=== PATIENT | male | born 1990 | race Caucasian/White ===

== ENCOUNTER 2017-09-04 00:13 | Emergency (ER) | payer BC, OTHER ==
[2017-09-04 00:17] VITALS: BP 189/89
[2017-09-04] MEDS ORDERED: ZOLPIDEM TARTRATE 5 MG TAB ONE (00:31)
[2017-09-04] MEDS ORDERED: ZOLPIDEM TARTRATE 5 MG TAB PO ONE (00:31)
--- NOTE | 2017-09-04 00:35 | EDPHY ---
H & P Time Seen by Provider: 09/04/17 00:24 HPI/ROS: CHIEF COMPLAINT: Insomnia HISTORY OF PRESENT ILLNESS: 27-year-old male with a known history of bipolar presents emergency department complaining of insomnia. The patient states that he has not slept well for several days. He feels "hypomanic". He denies homicidal or suicidal ideation. He admits to smoking marijuana. Denies any other substance abuse. He denies alcohol. He is requesting prescription for Ambien. He has taken this in the past but not for several years. He denies any physical complaints at this time. REVIEW OF SYSTEMS: Constitutional: No fever, no chills. Eyes: No double or blurry vision. ENT: No sore throat. Respiratory: No cough, no shortness of breath. Cardiac: No chest pain. Gastrointestinal: No abdominal pain, vomiting or diarrhea. Genitourinary: No dysuria. Musculoskeletal: No neck or back pain. Skin: No rashes. Neurological: No headache. Past Medical/Surgical History: Bipolar, marijuana Social History: Single Smoking Status: Current some day smoker Physical Exam: General Appearance: Alert, no distress. Eyes: Pupils equal and round. Extraocular motions are all intact. ENT: Mouth: Mucous membranes moist. Respiratory: No wheezing, rhonchi, or rales, lungs are clear to auscultation. Cardiovascular: Regular rate and rhythm. Gastrointestinal: Abdomen is soft and nontender, no masses, no rebound or guarding, bowel sounds normal. Neurological: Alert and oriented x 3, cranial nerves II through XII grossly intact Skin: Warm and dry, no rashes. Musculoskeletal: Nontender to palpate along the cervical, thoracic or lumbar spine. Neck is supple. Extremities: Full range of motion and no peripheral edema. Psychiatric: Patient is oriented X 3, there is no agitation. Constitutional: Initial Vital Signs Temperature (C) 36.7 C 09/04/17 00:15 Heart Rate 101 H 09/04/17 00:15 Respiratory Rate 20 09/04/17 00:15 Blood Pressure 189/89 H 09/04/17 00:15 O2 Sat (%) 98 09/04/17 00:15 Allergies/Adverse Reactions: No Known Allergies Allergy (Verified 09/04/17 00:15) Home Medications: Medication Instructions Recorded Hydrocodone/APAP 5/325 [[place] 1 - 2 tab PO Q4-6PRN PRN #13 tab 11/10/14 5/325] Zolpidem Tartrate [Ambien 5MG (*)] 5 mg PO HS PRN #7 tab 09/04/17 Medical Decision Making ED Course/Re-evaluation: 27-year-old male presents to the emergency department with a known history of insomnia. The patient is requesting prescription for Ambien which she has taken in the past for short-term relief of insomnia. He has a scheduled appointment with his psychiatrist on Tuesday. His girlfriend is coming to pick him up. He was given 5 mg Ambien and a prescription for 1 weeks worth of this medication. I did offer mental health evaluation, however the patient declined. He did not want to speak with mental health haircutter. Differential Diagnosis: Including but not limited to depression, electrolyte abnormality, substance abuse, stress, anxiety, bipolar Departure - Departure Disposition: Home, Routine, Self-Care Clinical Impression: History of bipolar disorder Insomnia Qualifiers: Insomnia type: unspecified Qualified Code(s): G47.00 - Insomnia, unspecified Condition: Good Instructions: Insomnia (ED), Bipolar Disorder (ED) Additional Instructions: Keep your scheduled appointment with your psychiatrist. Ambien as needed for short-term relief of insomnia. Do not mix alcohol or other drugs with this medication. Return to the emergency department if you have any other change in symptoms or feel worse. Referrals: Saqib Zurita MD [Primary Care Provider] - As per Instructions [facility] [Clinic] - As per Instructions Prescriptions: Zolpidem Tartrate [Ambien 5MG (*)] 5 mg PO HS PRN #7 tab PRN Reason: P.r.n. Insomnia
== END 2017-09-04 00:50 | disposition home or self-care (01) ==
LOC: EEVIPCON 00:13
DX: G47.00 Insomnia, unspecified (principal); F17.200 Nicotine dependence, unspecified, uncomplicated; Z86.59 Personal history of other mental and behavioral disorders

== ENCOUNTER 2017-09-05 01:54 | Inpatient (IN) | payer BC, OTHER ==
--- NOTE | 2017-09-05 02:18 | EDPHY ---
H & P - Medical/Surgical History Hx Asthma: No Hx Chronic Respiratory Disease: No Hx Diabetes: No Hx Cardiac Disease: No Hx Renal Disease: No Hx Cirrhosis: No Hx Alcoholism: No Hx HIV/AIDS: No Hx Splenectomy or Spleen Trauma: No Other PMH: bipolar - Social History Smoking Status: Current some day smoker Time Seen by Provider: 09/05/17 02:09 HPI/ROS: Chief Complaint: Can't sleep, history of bipolar HPI: 27-year-old male with a history of bipolar disorder, not currently under treatment or taking any medications. He has been unable to sleep for the last 3 days. He has had pressured speech and bizarre statements per his girlfriend her brought in for evaluation. He was seen here last night for complaints of difficulty sleeping and prescribed Ambien. He states he has been taking this without any effect. Here he has highly pressured speech and is tangential. He appears paranoid. He is not fully answering all my questions. Denies any other substance use. Does take omeprazole for reflux disease. No recent fevers or chills. No injuries. ROS: 10 point Review of Systems is negative except as noted in the HPI. PMH: Bipolar disorder Social History: Denies smoking, denies alcohol Family History: non-contributory Physical Exam: Gen: Awake, Alert, pressured speech HEENT: Nose: no rhinorrhea Eyes: PERRLA, EOMI Mouth: Moist mucosa Neck: Supple, no JVD Chest: nontender, lungs clear to auscultation Heart: S1, S2 normal, no murmur Abd: Soft, non-tender, no guarding Back: no CVA tenderness, no midline tenderness Ext: no edema, non-tender Skin: no rash Neuro: CN II-XII intact, Sensation grossly intact, Strength 5/5 in bilateral upper and lower extremities (Bran Vazquez) Constitutional: Initial Vital Signs Temperature (C) 36.8 C 09/05/17 02:15 Heart Rate 80 09/05/17 02:15 Respiratory Rate 16 09/05/17 02:15 Blood Pressure 177/102 H 09/05/17 02:15 O2 Sat (%) 96 09/05/17 02:15 O2 Delivery Mode Room Air Allergies/Adverse Reactions: No Known Allergies Allergy (Verified 09/05/17 02:14) Home Medications: Medication Instructions Recorded Hydrocodone/APAP 5/325 [[place] 1 - 2 tab PO Q4-6PRN PRN #13 tab 11/10/14 5/325] Zolpidem Tartrate [Ambien 5MG (*)] 5 mg PO HS PRN #7 tab 09/04/17 Medical Decision Making ED Course/Re-evaluation: 27-year-old with a history of bipolar disorder who is in a manic phase. He has pressured speech. He is not sleeping. He is tangential and he is suspicious and paranoid. I placed him on a mental health hold. Medical screening labs have been sent. He will require mental health evaluation. 0700 patient has required multiple doses of sedation and still not sleeping. In total he has received 20 mg of Zyprexa, 5 mg of Ativan and 50 mg of Benadryl. His stool awake and alert. He is awaiting mental health evaluation. Patient is signed out to Dr. Buck pending evaluation (Bran Vazquez) I took over care of this patient at 7:00 a.m.. This patient is here for bipolar disorder and manic state. He has been given 20 mg of Zyprexa and 5 mg of Ativan during his emergency department course. He is on an M1 hold. He is awaiting behavioral health evaluation. 8:55 a.m., the patient has been accepted for transfer to [address] [place] [address] Gonzalez. His remaining emergency department course under my care has been uneventful. The patient was transferred in good condition. I filled out the appropriate transfer paperwork. (Reg Buck) - Data Points Laboratory Results: Laboratory Results 09/05/17 02:10 09/05/17 02:10 09/05/17 09/05/17 09/05/17 02:10 02:10 02:10 WBC 7.60 10^3/uL 10^3/uL (3.80-9.50) RBC 4.76 10^6/uL 10^6/uL (4.40-6.38) Hgb 15.1 g/dL g/dL (13.7-17.5) Hct 43.6 % % (40.0-51.0) MCV 91.6 fL fL (81.5-99.8) MCH 31.7 pg pg (27.9-34.1) MCHC 34.6 g/dL g/dL (32.4-36.7) RDW 12.8 % % (11.5-15.2) Plt Count 252 10^3/uL 10^3/uL (150-400) MPV 8.9 fL fL (8.7-11.7) Neut % (Auto) 32.3 % L % (39.3-74.2) Lymph % (Auto) 57.9 % H % (15.0-45.0) [place] % (Auto) 8.0 % % (4.5-13.0) Eos % (Auto) 1.2 % % (0.6-7.6) Baso % (Auto) 0.5 % % (0.3-1.7) Nucleat RBC Rel Count 0.0 % % (0.0-0.2) Absolute Neuts (auto) 2.45 10^3/uL 10^3/uL (1.70-6.50) Absolute Lymphs (auto) 4.40 10^3/uL H 10^3/uL (1.00-3.00) Absolute Monos (auto) 0.61 10^3/uL 10^3/uL (0.30-0.80) Absolute Eos (auto) 0.09 10^3/uL 10^3/uL (0.03-0.40) Absolute Basos (auto) 0.04 10^3/uL 10^3/uL (0.02-0.10) Absolute Nucleated RBC 0.00 10^3/uL 10^3/uL (0-0.01) Immature Gran % 0.1 % % (0.0-1.1) Immature Gran # 0.01 10^3/uL 10^3/uL (0.00-0.10) Sodium 144 mEq/L mEq/L (135-145) Potassium 3.6 mEq/L mEq/L (3.3-5.0) Chloride 107 mEq/L mEq/L (97-110) Carbon Dioxide 21 mEq/l L mEq/l (22-31) Anion Gap 16 mEq/L mEq/L (8-16) BUN 16 mg/dL mg/dL (7-23) Creatinine 1.0 mg/dL mg/dL (0.7-1.3) Estimated GFR > 60 Glucose 103 mg/dL H mg/dL (70-100) Calcium 9.2 mg/dL mg/dL (8.5-10.4) Urine Opiates Screen NEGATIVE (NEGATIVE) Urine Barbiturates NEGATIVE (NEGATIVE) Ur Phencyclidine Scrn NEGATIVE (NEGATIVE) Ur Amphetamine Screen NEGATIVE (NEGATIVE) U Benzodiazepines Scrn NEGATIVE (NEGATIVE) Urine Cocaine Screen NEGATIVE (NEGATIVE) U Marijuana (THC) Screen NEGATIVE (NEGATIVE) Ethyl Alcohol < 10 mg/dL mg/dL (0-10) Medications Given: Discontinued Medications Diphenhydramine HCl (Benadryl Injection) 50 mg IVP EDNOW ONE Stop: 09/05/17 04:48 Last Admin: 09/05/17 04:50 Dose: 50 mg Sodium Chloride (Ns) 1,000 mls @ 0 mls/hr IV ONCE ONE; Wide Open PRN Reason: Protocol Stop: 09/05/17 02:33 Last Admin: 09/05/17 02:39 Dose: 1,000 mls Lorazepam (Ativan Injection) 1 mg IVP EDNOW ONE Stop: 09/05/17 02:33 Last Admin: 09/05/17 02:40 Dose: 1 mg Lorazepam (Ativan) 1 mg PO EDNOW ONE Stop: 09/05/17 03:47 Last Admin: 09/05/17 03:49 Dose: 1 mg Lorazepam (Ativan Injection) 2 mg IVP EDNOW ONE Stop: 09/05/17 04:03 Last Admin: 09/05/17 04:17 Dose: 2 mg Lorazepam (Ativan Injection) 1 mg IVP EDNOW ONE Stop: 09/05/17 04:22 Last Admin: 09/05/17 04:23 Dose: 1 mg Olanzapine (Zyprexa Zydis) 10 mg PO EDNOW ONE Stop: 09/05/17 02:33 Last Admin: 09/05/17 02:40 Dose: 10 mg Olanzapine (Zyprexa Zydis) 10 mg PO EDNOW ONE Stop: 09/05/17 06:17 Last Admin: 09/05/17 06:16 Dose: 10 mg Departure - Departure Disposition: [facility] IP Clinical Impression: Bipolar 1 disorder, Manic behavior Referrals: NONE *PRIMARY CARE P,. [Primary Care Provider] - As per Instructions
[2017-09-05 02:27] LABS: PLATELET COUNT 252 10^3/uL (150-400)
[2017-09-05] MEDS ORDERED: OLANZapine DISINTEGR 10 MG TAB ONE ×2 (02:29→06:10)
[2017-09-05] MEDS ORDERED: OLANZapine DISINTEGR 10 MG TAB PO ONE ×2 (02:32→06:16)
[2017-09-05] MEDS ORDERED: LORazepam 2 MG/ML INJ IVP ONE ×3 (02:32→04:21)
[2017-09-05] MEDS ORDERED: NS 1,000 ML IV ONE (02:32)
[2017-09-05] MEDS ORDERED: LORazepam 1 MG TAB PO ONE (03:46)
[2017-09-05] MEDS ORDERED: LORazepam 2 MG/ML INJ ONE (04:02)
[2017-09-05] MEDS ORDERED: OLANZapine 5 MG TAB PO ONE (06:10)
[2017-09-05] MEDS ORDERED: MAG HYDROX/AL HYDROX/SIMETH 30 ML UDCUP PO PRN (11:14)
[2017-09-05] MEDS ORDERED: ACETAMINOPHEN 325 MG TAB PO PRN (11:14)
[2017-09-05] MEDS ORDERED: MAGNESIUM HYDROXIDE 30 ML UDCUP PO PRN (11:14)
--- NOTE | 2017-09-05 14:43 | GCON ---
[f rep st] CONSULTATION INTERNAL MEDICINE CONSULTATION DATE OF CONSULTATION: 09/05/2017 REFERRING PHYSICIAN: Joaquín Gatica MD REASON FOR REFERRAL: Medical clearance for inpatient behavioral health stay. HISTORY OF PRESENT ILLNESS: This patient presents to the emergency department yesterday and then again this morning with complaints of being unable to sleep. Yesterday, he was given Ambien by the emergency room. Today, he returned, brought in by his girlfriend with psychosis. As he was very manic, he received multiple doses of sedating medication. He was eventually evaluated by the mental health team and then admitted for further psychiatric care. Currently, he is somnolent and does not arouse to verbal or light tactile stimulation. PAST MEDICAL HISTORY: 1. Bipolar disorder. 2. Question of gastroesophageal reflux disorder. MEDICATIONS: 1. Omeprazole 40 mg p.o. daily. 2. Zolpidem 5 mg p.o. at bedtime p.r.n. SOCIAL HISTORY: He lives with his father. 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 He is a smoker and has history of alcohol use. PAST SURGICAL HISTORY: No history of any surgeries. REVIEW OF SYSTEMS: Unobtainable due to patient's somnolence. PHYSICAL EXAMINATION: VITAL SIGNS: Blood pressure upon presentation to the emergency department was 177/102, and subsequently has come down to 119/75 at 11 :47 today. Heart rate is 95, respiratory rate is 14, oxygen saturation is 96% on room air. Temperature is 36.8 degrees centigrade. GENERAL: This is a well- nourished, well-developed man, sleeping in bed, not arousable to verbal or light tactile stimulation. HEENT: He is not snoring. He appears to be protecting his airway adequately. He is sleeping on his side. CARDIAC: Exam could not be performed. There was no edema. LUNGS: Clear to auscultation bilaterally. ABDOMEN: Benign. EXTREMITIES: There is no cyanosis, clubbing, or edema. NEUROLOGIC: He is sleeping and does not arouse to light tactile or verbal stimulation. LABORATORY/IMAGING: From the emergency department, CBC was overall within normal limits. He had a slight elevation of absolute lymphocytes at 4.4. Serum chemistry revealed a low carbon dioxide of 21. Otherwise, renal function and electrolytes were within normal limits. Toxicology screen in the serum was negative for ethyl alcohol and the urine was negative for any substances of abuse. ASSESSMENT/RECOMMENDATIONS: 1. Psychiatric issues. Pending further evaluation and management per Psychiatry and the mental health team. 2. Elevated blood pressure. Appears to have resolved after being treated with numerous sedating medications. Advise monitoring of blood pressure, and if it remains elevated, would consider treatment. 3. Somnolence, likely due to multiple sedating medications. Expect that it will resolve over a period of hours. 4. Tobacco dependence syndrome. It would be in his best interest to stop smoking. I see no medical contraindications to this patient's continued stay in the inpatient behavioral health unit or to any psychiatric medications or procedures. Thank you very much for including me in the care of this patient and please do not hesitate to contact me or the hospitalist service should there be need for further medical evaluation, especially as he recovers from sedating effects of psychiatric medications and is more able to be compliant with history and physical exam.. /[id number]/MODL MTDSummer
--- NOTE | 2017-09-05 15:34 | BAPA ---
[f rep st] ADMISSION PSYCHIATRIC ASSESSMENT DATE OF SERVICE: 09/05/2017 REASON FOR ADMISSION: Patient is a 27-year-old male with a history of bipolar disorder wit h previous severe zuleika. He was brought into the emergency department by his girlfriend, due to incr easing manic symptoms. She described that the patient had not been sleeping, had pressured speech, w as paranoid and demonstrated poor insight into his condition. The ER physician, Dr. Nance believed t he patient to be gravely disabled, and placed him on an M1 hold. Additional history indicated that gregorio hinton had not slept for over 3 days and he had previously come to the emergency department the day before . He was prescribed Ambien, and discharged to home. The girlfriend thought that it made him worse b ecause he was more disinhibited and disorganized. She stated that he was grandiose, and was not randall ng sense. She stated that he was also quite irritable and that he was having "temper tantrums." His mother stated that she noticed several months of increasing irritability with significant worsening over the past few weeks. 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 She states that this is unusual for him, as he is usually grateful and gr acious and that she was concerned it might represent some hypomania. She states that he appeared to feel "powerful and dominant." Once in the emergency department, he was agitated, pressured and was u nable to sleep. He was given IM Benadryl, IV Ativan for a total of 7 mg over 90 minutes and 20 mg of Zyprexa. He did not sleep, and only calmed slightly. The girlfriend reported that he had not been eating at home, though he did eat some in the emergency department. He was still restless and agitat ed, and had trouble staying seated. He had trouble answering questions logically, and was disorganiz ed. The TLC worker noted thought blocking and even at 1 point, a deterioration into word salad. He appeared suspicious and guarded, and would not give phone numbers. He did not want to give his name. He states that he had to have his phone because he believed people were tracking him. Today, the patient is alert and interactive, though very distracted. He is internally preoccupied an d appears to be paranoid, stating that "they are after me" and frequently scanning the room and the d oor. He appears to have possibly hypervigilance and some hyper startle as well. His attention and c oncentration are quite poor and he struggles to follow the conversation. He is unable to give much m eaningful history, though seems to want to but is limited by his level of disorganization. At the en d of the interview, I indicate that he can go to his room across the [place] from the office and he imme diately turns and walks to the nurse's station. The nurse then verbally redirects him to his room, w kirkh he turns and walks in the opposite direction again. He is noted by me to be wandering in the [place] for the next half an hour prior to being escorted to his room at his request. PAST PSYCHIATRIC HISTORY: Patient has a history of mood problems dating back to his adolescence. He was diagnosed with bipolar disorder, and treated by Dr. Katelyn Metcalf with Seroquel at 1 point. He also had a manic episode apparently in 2014, for which he was jailed after vandalizing some property of his father's. He spent 7 months in halfway, at that time. He is not currently taking any medication s, and is not under the care of a psychiatrist. ALLERGIES: No known medical allergies. CURRENT MEDICINES: None. PAST MEDICAL HISTORY: Noncontributory. SOCIAL HISTORY: The patient and his girlfriend currently live with his father. They work for the [employer], which he has done for approximately a year. He states his girlfriend is defending her doctoral dissertation in [employer] at this time. The patient has a history of marijuana and ke tamine use, though he states he has not used any drugs for over a year. FAMILY HISTORY: The patient has a paternal uncle and paternal great grandmother diagnosed with bipol ar disorder. His great grandmother apparently committed suicide. His uncle has been successfully tr eated with lithium. Apparently, however, he did also commit suicide after he had a protracted zuleika. ADMISSION LABORATORY: Urine drug screen is negative for all substances. Alcohol is less than detect able. CBC is normal. Serum chemistries are normal. MENTAL STATUS EXAMINATION: Reveals a disheveled, though healthy-appearing male. He is earnestine rt and interactive, though struggles to communicate effectively on a one-to-one basis. He is interna lly preoccupied, hypervigilant and appears to demonstrate a disorganized thought process. He is aler t and oriented to person, place, time, and situation, though is distractible. There is no clear evid ence of delirium, though his attention, concentration, distractibility are concerning. He denies any auditory, visual or tactile hallucinations or feeling paranoid, though he certainly has a recent his tory of clear paranoid thinking. His intellect appears to be at least average as evidenced by his oc cupational history and previous functional level. He is cooperative and states that he is appreciati ve of the care in the hospital, but wants to leave as soon as possible. He denies any thoughts of taylor icide, homicide, or violence. IMPRESSION: 1. Bipolar 1 disorder, most recent episode manic, severe with psychosis. 2. Cannabis use disorder, possibly in remission. We will need to verify. The patient is a pleasant 27-year-old male who is having what appears to be an episode of b ipolar zuleika with psychosis. He was given multiple medications in the emergency department and claudia ated these well, though remains pressured and active. Hopefully, he will be able to rest and reset d uring the hospital stay. PLAN: 1. Will admit to the behavioral health services inpatient unit on an M1 hold. 2. We will continue Zyprexa on a p.r.n. basis and scheduled at bedtime with a total maximum daily do se of 30 mg. We will also institute Depakote treatment starting at a 1000 mg at bedtime tonight. Th e risks, benefits, and alternatives of this discussed with the patient and he states "that sounds lik e a great idea.". 3. We will engage patient's family and girlfriend in the treatment and discharge planning process. 4. We will engage the patient in individual, group, and milieu psychotherapies, focusing on the impo rtance of ongoing management of his illness and possible recognition of any ongoing substance use iss ues that are unclear at this time. 5. Estimated length of stay is 3-5 days. /[id number]/MODL
[2017-09-05] MEDS: PANTOPRAZOLE SODIUM 40 MG TAB PO SCH (20:55)
[2017-09-05] MEDS: DIVALPROEX NA 500 MG TAB PO SCH (20:56)
[2017-09-05] MEDS: OLANZapine DISINTEGR 10 MG TAB PO PRN (20:56)
[2017-09-05] MEDS ORDERED: NON-FORMULARY NEW DRUG (Omeprazole [Omeprazole] 40 MG) PO SCH (21:00)
[2017-09-05] MEDS: LORazepam 0.5 MG TAB PO PRN (21:37)
[2017-09-06] MEDS: LORazepam 0.5 MG TAB PO PRN ×2 (03:14→20:49)
--- NOTE | 2017-09-06 18:00 | SOAPPROG ---
SOAP Progress Note Assessment/Plan: Assessment: Plan: 09/06/17 18:00 Mood: Improved with addition of VPA. Psychosis much improved. CCM. Subjective: Pt seen, discussed with staff. Slept 7 hours last night. Calmer and better organized today. Discussed his work and relationship with his mother. He describes her as "totally insane" and states, "there is no way to have a useful conversation with her." He states also that "I have the highest respect for her." Agrees to a family meeting, however. He is compliant with meds including VPA and states he believes this is helping him thus far. Feels "like my thoughts are quieter." No SE's noted. Objective: Vital Signs Temp Pulse Resp BP Pulse Ox 36.8 C 95 14 119/75 96 09/05/17 11:47 09/05/17 11:47 09/05/17 11:47 09/05/17 11:47 09/05/17 11:47 MSE: Adequately groomed, calmer, coop. Affect is slightly constricted, stable. Mood is "a lot better." TP generally linear. TC reveals less paranoia , denies AH's. - Time Spent With Patient Time Spent With Patient: 25" ICD10 Worksheet Patient Problems: Problems Problem Status Onset Bipolar 1 disorder Acute Manic behavior Acute
[2017-09-06] MEDS: DIVALPROEX NA 500 MG TAB PO SCH (20:50)
[2017-09-06] MEDS: OLANZapine DISINTEGR 10 MG TAB PO PRN (20:50)
[2017-09-06] MEDS: PANTOPRAZOLE SODIUM 40 MG TAB PO SCH (21:50)
[2017-09-07] MEDS: PANTOPRAZOLE SODIUM 40 MG TAB PO SCH (05:55)
[2017-09-07] MEDS ORDERED: OLANZapine DISINTEGR 10 MG TAB PO PRN (10:56)
--- NOTE | 2017-09-07 15:45 | SOAPPROG ---
SOAP Progress Note Assessment/Plan: Assessment: Plan: 09/06/17 18:00 Mood: Improved with addition of VPA. Psychosis much improved. CCM. 09/07/17 15:45 Mood: Alexia is much improved. CCM. VPA level in morning. Subjective: Pt seen, discussed with staff. Reports feeling "pretty darn good" today. He states he is "almost back to normal." He slept 7 hours last night, though took Zyprexa, Ativan and VPA. Accord "a little groggy" this morning. Clearly improving with more linear thoughts, decreased delusions. Compliant with meds and therapies. Objective: Vital Signs Temp Pulse Resp BP Pulse Ox 36.7 C 123 H 16 121/72 H 96 09/07/17 06:00 09/07/17 06:00 09/07/17 06:00 09/07/17 06:00 09/07/17 06:00 MSE: Calm, coop. Affect is euthymic, stable, approp. Mood is "good." TP generally linear. TC reveals no active psychosis. - Time Spent With Patient Time Spent With Patient: 25" ICD10 Worksheet Patient Problems: Problems Problem Status Onset Bipolar 1 disorder Acute Manic behavior Acute
[2017-09-07] MEDS: DIVALPROEX NA 500 MG TAB PO SCH (17:48)
[2017-09-07] MEDS: LORazepam 0.5 MG TAB PO PRN (17:51)
[2017-09-08] MEDS: LORazepam 0.5 MG TAB PO PRN ×2 (01:54→08:06)
[2017-09-08] MEDS ORDERED: PANTOPRAZOLE SODIUM 40 MG TAB PO SCH (06:00)
[2017-09-08 06:28] VITALS: BP 134/61
--- NOTE | 2017-09-12 17:44 | BAPA ---
[f rep st] ADMISSION PSYCHIATRIC ASSESSMENT REASON FOR ADMISSION: Patient is a 27-year-old male with history of bipolar disorder. He was admitted from the emergency department after he presented requesting help. He came in with his g irlfriend and reported increasing manic symptoms. He had not slept in 3 days, had pressured speech, was paranoid, and demonstrated overall poor insight. He was believed to be gravely disabled, placed on M1 hold, admitted for further evaluation. Full description of the events preceding admission can be found in his admission history dated 09/05/2017. ADMITTING DIAGNOSES: Bipolar 1 disorder, most recent episode manic severe with psychosis; cannabis use disorder, severity unknown. ADMITTING PHYSICAL EXAMINATION: Performed by Dr. Abdoul Herring showed no significant abnormalities . ADMISSION LABORATORY: CBC was normal. Serum chemistries showed no significant abnormalities. Urine drug screen was negative for all substances. Alcohol was less than detectable. HOSPITAL COURSE: Patient was admitted to [facility] inpatient unit on an M1 hold. He was extremely sedated and somewhat disoriented when I first interviewed him, but this was likely due to the 6 mg of Ativan and 20 mg of Zyprexa he had received in the emergency department. He had not s lept in almost 4 days at that point and then was able to sleep. When I saw him the next day, he was very coherent and remained somewhat pressured but was interactive and appropriate. We discussed his history and he was agreeable to a trial of Depakote. This was started at 1000 mg at bedtime. He howie erated the medicine well with no side effects. A level was drawn on 09/08/2017 was 71.6. Patient resolved rapidly from the psychotic zuleika, and after only 3 days, appeared to be at a normal baseline. His parents voiced their concern that he uses marijuana very heavily, and that when he use s marijuana, his symptoms are worse. I discussed this with him at length and with him and his father together in a family meeting prior to discharge. It was agreed that he would attempt to abstain fro m marijuana as it was my strong opinion it was exacerbating his condition. Patient's hospitalization was uncomplicated. He stabilized rapidly on the Depakote and was exhibitin g no signs of zuleika. The patient's father was present and was agreeable with him returning home. CONDITION ON DISCHARGE: Stable. His affect was euthymic, stable, and appropriate, and he was showin g no signs of psychosis or zuleika. DISCHARGE MEDICATIONS: Depakote ER 500 mg twice daily and lorazepam 0.5 mg to 1 mg every 6 hours as needed. Patient was given 30-day supply of Depakote and #14 tabs of the lorazepam. He also was taki ng omeprazole 40 mg daily. DISCHARGE DIAGNOSES: Bipolar 1 disorder, manic, severe with psychosis; cannabis use disorder, severe . DISPOSITION: Patient left the hospital with his father to return to his home. FOLLOWUP: With his existing therapist as scheduled by the pet care worker with the clinic for medic ation management. Patient was given my contact information, should he have any problems with this. LEGAL COURSE: Patient was converted to a voluntary status with the expiration of his M1 hold. Patient was given written instructions of his followup appointments and times at time of discharge. The patient's attitude was positive at time of discharge. Patient did not have advance directives on file but was a full code throughout his stay. There are no pending labs or studies at time of his discharge. /[id number]/MODL
== END 2017-09-08 13:35 | disposition home or self-care (01) | DRG 885 ==
LOC: EEVIPCON 01:54 → BBEH 10:40
PROVIDERS: ADMIT Psychiatry & Neurology Psychiatry; ATTEND Psychiatry & Neurology Psychiatry
DX: F31.2 Bipolar disorder, current episode manic severe with psychotic features (principal); F12.90 Cannabis use, unspecified, uncomplicated; K21.9 Gastro-esophageal reflux disease without esophagitis; F17.210 Nicotine dependence, cigarettes, uncomplicated
CPT/HCPCS: 80305; 96374; G0480; J1200; J2060

== ENCOUNTER 2017-09-29 04:05 | Emergency (ER) | payer OTHER ==
[2017-09-29 04:09] VITALS: BP 122/75
--- NOTE | 2017-09-29 04:35 | EDPHY ---
H & P Stated Complaint: "fiberglass in my eye", L eye, poss since tuesday Time Seen by Provider: 09/29/17 04:11 HPI/ROS: Chief Complaint: Eye irritation HPI: 27-year-old male presenting with 2-3 days of left eye irritation. Patient has been working installing fiberglass ceiling tiles and thinks he may have had a piece get in his eye. He has been rubbing it. No vision changes. Does not wear glasses or contacts. No eye discharge. He is not irrigated his eye. ROS: 10 point Review of Systems is negative except as noted in the HPI. PMH: Denies Social History: No smoking, no alcohol, no recreational drug use Family History: non-contributory Physical Exam: General: Awake, alert, no acute distress Eye Exam Visual Acuity: Intact EOM: Intact OU Visual Santizo: Intact OU Pupil: Equal, round and reactive to light and accomodation OU External: Lids, lashes and margins normal OU Slit Lamp; Normal Conjuctiva, Iris normal, Cornea normal, Anterior chambers clear without cells or flare, no hyphema, normal angles, there is an eyelash in the inferior anterior chamber Fluorosceine exam: No uptake - Personal History Current Tetanus Diphtheria and Acellular Pertussis (TDAP): Yes - Medical/Surgical History Hx Asthma: No Hx Chronic Respiratory Disease: No Hx Diabetes: No Hx Cardiac Disease: No Hx Renal Disease: No Hx Cirrhosis: No Hx Alcoholism: No Hx HIV/AIDS: No Hx Splenectomy or Spleen Trauma: No Other PMH: bipolar - Social History Smoking Status: Current some day smoker Constitutional: Initial Vital Signs Temperature (C) 36.6 C 09/29/17 04:08 Heart Rate 74 09/29/17 04:08 Respiratory Rate 18 09/29/17 04:08 Blood Pressure 122/75 H 09/29/17 04:08 O2 Sat (%) 97 09/29/17 04:08 O2 Delivery Mode Room Air Allergies/Adverse Reactions: No Known Allergies Allergy (Verified 09/29/17 04:08) Home Medications: Medication Instructions Recorded Omeprazole 40 mg PO DAILY 09/05/17 Divalproex ER [Depakote ER 500 MG 500 mg PO BID #60 tab 09/08/17 (*)] LORazepam [Ativan (*)] 0.5 - 1 mg PO Q6HRS PRN #14 tab 09/08/17 Medical Decision Making ED Course/Re-evaluation: 27-year-old male with an eyelash in his left eye. There is no for seen uptake. There is no redness. This is been removed by me. No evidence of a corneal abrasion or other corneal foreign body. Will discharge with outpatient ophthalmology referral. Departure - Departure Disposition: Home, Routine, Self-Care Clinical Impression: Eye foreign body Condition: Good Instructions: Eye Foreign Body (ED) Additional Instructions: Follow up with psychiatric cns in the to 4 days if symptoms have not improved. Referrals: Lew Turner MD [Medical Doctor] - As per Instructions
== END 2017-09-29 04:40 | disposition home or self-care (01) ==
PROC: 08C0XZZ Extirpation of Matter from Right Eye, External Approach (ICD-10-PCS; principal; 2017-09-29)
DX: T15.01XA Foreign body in cornea, right eye, initial encounter (principal); X58.XXXA Exposure to other specified factors, initial encounter; Y99.0 Civilian activity done for income or pay; Y93.89 Activity, other specified; F17.200 Nicotine dependence, unspecified, uncomplicated

== ENCOUNTER 2018-04-07 11:01 | Emergency (ER) | payer OTHER ==
[2018-04-07] MEDS ORDERED: NS 1,000 ML IV ONE ×2 (11:27→12:49)
[2018-04-07] MEDS ORDERED: ONDANSETRON 4 MG/2 ML VIAL IVP ONE (11:27)
[2018-04-07 12:33] LABS: PLATELET COUNT 337 10^3/uL (150-400)
--- NOTE | 2018-04-07 12:49 | EDPHY ---
H & P Stated Complaint: n/v/d Time Seen by Provider: 04/07/18 12:06 HPI/ROS: CHIEF COMPLAINT: Nausea vomiting diarrhea HISTORY OF PRESENT ILLNESS: 27-year-old male via private vehicle complaining of acute onset of nausea vomiting diarrhea which started last evening. No abdominal pain. No syncope or near syncope. No back or flank pain. No headache. No testicular pain. No fever no chills. No flu-like symptoms. No antibiotic use recently. No international travel. No untreated water sources. PRIMARY CARE PROVIDER: REVIEW OF SYSTEMS: 10 systems reviewed and negative with the exception of the elements mentioned in the history of present illness PAST MEDICAL & SURGICAL HISTORY: No pertinent medical or surgical history SOCIAL HISTORY:Nonsmoker PHYSICAL EXAM (Prior to examination, patient consented to physical exam, hands were washed and my usual and customary physical exam procedures followed) 1) GENERAL: Well-developed, well-nourished, alert and oriented. Appears to be in no acute distress. 2) HEAD: Normocephalic, atraumatic 3) HEENT: Pupils equal, round, reactive to light bilaterally. Sclera anicteric. Nasopharynx, oropharynx, clear, no lesions. Dry mucous membranes. 4) NECK: Full range of motion, no meningeal signs. 5) LUNGS: Clear auscultation bilaterally, no wheezes, no rhonchi, no retractions. 6) HEART: Regular rate and rhythm, no murmur, no heave, no gallop. 7) ABDOMEN: Flat, No guarding, no rebound, no focal tenderness, negative McBurney's, negative Knight's, negative Rovsing's, negative peritoneal sign, I am unable to elicit any abdominal pain on exam 8) MUSCULOSKELETAL: Moving all extremities, no focal areas of tenderness, no obvious trauma. No peripheral edema or discoloration. 9) BACK: No CVA tenderness, no midline vertebral tenderness, no fluctuance, no step-off, no obvious trauma, no visual or palpable abnormality. 10) SKIN: No rash, no petechiae. 11) Psychiatric: Patient is oriented X 3, there is no agitation. DIFFERENTIAL DIAGNOSIS: My differential diagnosis includes, but is not limited to, acute appendicitis, acute cholecystitis, bowel obstruction, acute pancreatitis,, gastritis and urinary tract infection. The patient understands that this diagnosis is provisional and can never be 100% accurate. This is a partial list of diagnoses considered. These considerations are based on history , physical exam, past history and reassessment. - Personal History Current Tetanus Diphtheria and Acellular Pertussis (TDAP): Yes - Medical/Surgical History Hx Asthma: No Hx Chronic Respiratory Disease: No Hx Diabetes: No Hx Cardiac Disease: No Hx Renal Disease: No Hx Cirrhosis: No Hx Alcoholism: No Hx HIV/AIDS: No Hx Splenectomy or Spleen Trauma: No Other PMH: bipolar - Social History Smoking Status: Current every day smoker Constitutional: Initial Vital Signs Temperature (C) 36.7 C 04/07/18 11:04 Heart Rate 112 H 04/07/18 11:04 Respiratory Rate 18 04/07/18 11:04 Blood Pressure 167/88 H 04/07/18 11:04 O2 Sat (%) 95 04/07/18 11:04 O2 Delivery Mode Room Air Allergies/Adverse Reactions: No Known Allergies Allergy (Verified 04/07/18 11:03) Home Medications: Medication Instructions Recorded Ondansetron Odt [Zofran Odt] 4 mg PO Q4PRN PRN #10 tab 04/07/18 Medical Decision Making ED Course/Re-evaluation: 2:40 p.m.: Re-evaluation. Patient given IV hydration. Creatinine is dropped from 1.6 to 1.1. Heart rate in the 90s. Unable to provide stool sample in the ER. He would like to be discharged. Re-examined his abdomen which is soft flat no guarding no rebound. Tolerating oral intake. Doubt acute surgical abdominal pathology. My usual customary discharge precautions instructions have been provided. Discharged with antiemetic. Care of patient under supervision of secondary supervising physician Dr Rascon with whom I discussed case. - Data Points Laboratory Results: Laboratory Results 04/07/18 11:45 04/07/18 14:07 04/07/18 04/07/18 04/07/18 14:07 11:45 11:45 WBC 15.00 10^3/uL H 10^3/uL (3.80-9.50) RBC 5.56 10^6/uL 10^6/uL (4.40-6.38) Hgb 17.6 g/dL H g/dL (13.7-17.5) Hct 49.6 % % (40.0-51.0) MCV 89.2 fL fL (81.5-99.8) MCH 31.7 pg pg (27.9-34.1) MCHC 35.5 g/dL g/dL (32.4-36.7) RDW 13.0 % % (11.5-15.2) Plt Count 337 10^3/uL 10^3/uL (150-400) MPV 9.0 fL fL (8.7-11.7) Neut % (Auto) 93.8 % H % (39.3-74.2) Lymph % (Auto) 2.7 % L % (15.0-45.0) [place] % (Auto) 2.9 % L % (4.5-13.0) Eos % (Auto) 0.0 % L % (0.6-7.6) Baso % (Auto) 0.2 % L % (0.3-1.7) Nucleat RBC Rel Count 0.0 % % (0.0-0.2) Absolute Neuts (auto) 14.07 10^3/uL H 10^3/uL (1.70-6.50) Absolute Lymphs (auto) 0.41 10^3/uL L 10^3/uL (1.00-3.00) Absolute Monos (auto) 0.44 10^3/uL 10^3/uL (0.30-0.80) Absolute Eos (auto) 0.00 10^3/uL L 10^3/uL (0.03-0.40) Absolute Basos (auto) 0.03 10^3/uL 10^3/uL (0.02-0.10) Absolute Nucleated RBC 0.00 10^3/uL 10^3/uL (0-0.01) Immature Gran % 0.4 % % (0.0-1.1) Immature Gran # 0.06 10^3/uL 10^3/uL (0.00-0.10) RBC/WBC/PLT Morphology TNP Platelet Estimate TNP Sodium 136 mEq/L mEq/L 137 mEq/L mEq/L (135-145) (135-145) Potassium 4.0 mEq/L mEq/L 4.4 mEq/L mEq/L (3.5-5.2) (3.5-5.2) Chloride 108 mEq/L mEq/L 101 mEq/L mEq/L (97-110) (97-110) Carbon Dioxide 21 mEq/l L mEq/l 21 mEq/l L mEq/l (22-31) (22-31) Anion Gap 7 mEq/L mEq/L 15 mEq/L H mEq/L (6-14) (6-14) BUN 27 mg/dL H mg/dL 31 mg/dL H mg/dL (7-23) (7-23) Creatinine 1.1 mg/dL mg/dL 1.6 mg/dL H mg/dL (0.7-1.3) (0.7-1.3) Estimated GFR > 60 53 Glucose 114 mg/dL H mg/dL 168 mg/dL H mg/dL (70-100) (70-100) Calcium 9.0 mg/dL mg/dL 10.6 mg/dL H mg/dL (8.5-10.4) (8.5-10.4) Total Bilirubin 1.3 mg/dL mg/dL (0.1-1.4) Conjugated Bilirubin 0.5 mg/dL mg/dL (0.0-0.5) Unconjugated Bilirubin 0.8 mg/dL mg/dL (0.0-1.1) AST 31 IU/L IU/L (17-59) ALT 32 IU/L IU/L (21-72) Alkaline Phosphatase 95 IU/L IU/L (38-126) Total Protein 8.2 g/dL g/dL (6.3-8.2) Albumin 5.2 g/dL H g/dL (3.5-5.0) Lipase 78 IU/L IU/L (23-300) Medications Given: Discontinued Medications Sodium Chloride (Ns) 1,000 mls @ 0 mls/hr IV ONCE ONE; Wide Open PRN Reason: Protocol Stop: 04/07/18 11:28 Last Admin: 04/07/18 11:40 Dose: 1,000 mls Sodium Chloride (Ns) 1,000 mls @ 0 mls/hr IV ONCE ONE PRN Reason: Wide Open Stop: 04/07/18 12:50 Last Admin: 04/07/18 13:02 Dose: 1,000 mls Ondansetron HCl (Zofran) 4 mg IVP EDNOW ONE Stop: 04/07/18 11:28 Last Admin: 04/07/18 11:59 Dose: 4 mg Departure - Departure Disposition: Home, Routine, Self-Care Clinical Impression: Volume depletion, Nausea vomiting and diarrhea Condition: Good Instructions: Acute Nausea and Vomiting (ED) Additional Instructions: Seek immediate medical attention if you develop new or worsening symptoms, if you develop fevers, chills, inability to tolerate oral intake or any other symptoms that concerns you. Referrals: [facility],. [Clinic] - 2-3 days, call for appt. Prescriptions: Ondansetron Odt [Zofran Odt] 4 mg PO Q4PRN PRN #10 tab PRN Reason: Nausea
[2018-04-07 15:01] VITALS: BP 116/64
== END 2018-04-07 14:51 | disposition home or self-care (01) ==
DX: R11.2 Nausea with vomiting, unspecified (principal); R19.7 Diarrhea, unspecified; E86.9 Volume depletion, unspecified; F17.200 Nicotine dependence, unspecified, uncomplicated
CPT/HCPCS: 96374; J2405